=== PATIENT | female | born 1990 | race Caucasian/White ===

== ENCOUNTER 2019-03-22 07:08 | Emergency (ER) | payer BC, OTHER ==
[2019-03-22] MEDS ORDERED: METOCLOPRAMIDE 10 MG/2 ML VIAL IVP ONE (07:33)
[2019-03-22] MEDS ORDERED: KETOROLAC 30 MG/1 ML SDV IVP ONE (07:33)
[2019-03-22] MEDS ORDERED: NS 1,000 ML IV ONE (07:33)
[2019-03-22] MEDS ORDERED: DEXAMETHASONE 10 MG/ML VIAL IVP ONE (07:33)
--- NOTE | 2019-03-22 07:36 | EDPHY ---
H & P Stated Complaint: migraine Time Seen by Provider: 03/22/19 07:29 HPI/ROS: CHIEF COMPLAINT: Migraine headache HISTORY OF PRESENT ILLNESS: The patient presents the emergency department with complaints of a typical migraine headache. The patient reports her headache began at 8:00 a.m. In the evening last night. She is typically able to take NSAIDs to manage her symptoms. She denies any fever, neck stiffness, peripheral numbness or weakness. The patient denies additional acute medical complaints. She currently rates her frontal head headache as an 8/10. REVIEW OF SYSTEMS: A comprehensive 10 point review of systems is otherwise negative aside from elements mentioned in the history of present illness. Source: Patient - Personal History LMP (Females 10-55): 1-7 Days Ago Current Tetanus Diphtheria and Acellular Pertussis (TDAP): Yes - Medical/Surgical History Hx Asthma: No Hx Chronic Respiratory Disease: No Hx Diabetes: No Hx Cardiac Disease: No Hx Renal Disease: No Hx Cirrhosis: No Hx Alcoholism: No Hx HIV/AIDS: No Hx Splenectomy or Spleen Trauma: No Other PMH: migraine - Social History Smoking Status: Never smoked - Physical Exam Exam: General Appearance: Alert, no distress Eyes: Pupils equal and round no pallor or injection ENT, Mouth: Mucous membranes moist Respiratory: There are no retractions, lungs are clear to auscultation Cardiovascular: Regular rate and rhythm Gastrointestinal: Abdomen is soft and nontender, no masses, bowel sounds normal Neurological: A&O, normal motor function, normal sensory exam, normal cranial nerves Skin: Warm and dry, no rashes Musculoskeletal: No nuchal rigidity Constitutional: Initial Vital Signs Temperature (C) 36.8 C 03/22/19 07:13 Heart Rate 79 03/22/19 07:13 Respiratory Rate 17 03/22/19 07:13 Blood Pressure 116/60 03/22/19 07:13 O2 Sat (%) 97 03/22/19 07:13 O2 Delivery Mode Room Air Allergies/Adverse Reactions: No Known Allergies Allergy (Unverified 03/22/19 07:09) Home Medications: Medication Instructions Recorded Nature Thyroid 03/22/19 Ondansetron Odt [Zofran Odt] 4 mg PO Q4PRN PRN #20 tab 03/22/19 Medical Decision Making ED Course/Re-evaluation: The patient presents the ED with a typical migraine headache. She is neurologically intact. There is no evidence of meningitis. The patient was treated with IV Toradol, Benadryl and Reglan. Re-evaluated the patient at 8:15 a.m.: She reports her headache has entirely resolved. She would like to be discharged home. She continues to have a normal neurologic examination. She is discharged home with customary aftercare instructions and return precautions. - Data Points Medications Given: Discontinued Medications Dexamethasone (Decadron Injection) 10 mg IVP EDNOW ONE Stop: 03/22/19 07:34 Last Admin: 03/22/19 07:39 Dose: 10 mg Sodium Chloride (Ns) 1,000 mls @ 0 mls/hr IV ONCE ONE; Wide Open PRN Reason: Protocol Stop: 03/22/19 07:34 Last Admin: 03/22/19 07:38 Dose: 1,000 mls Ketorolac Tromethamine (Toradol) 30 mg IVP EDNOW ONE Stop: 03/22/19 07:34 Last Admin: 03/22/19 07:39 Dose: 30 mg Metoclopramide HCl (Reglan Injection) 10 mg IVP EDNOW ONE Stop: 03/22/19 07:34 Last Admin: 03/22/19 07:39 Dose: 10 mg Departure - Departure Disposition: Home, Routine, Self-Care Clinical Impression: Migraine Condition: Good Instructions: Migraine Headache (ED) Additional Instructions: 1. Take Ibuprofen or Motrin 600 mg by mouth three times a day. 2. Zofran as needed for nausea Prescriptions: Ondansetron Odt [Zofran Odt] 4 mg PO Q4PRN PRN #20 tab PRN Reason: For Nausea
[2019-03-22 08:22] VITALS: BP 112/64
== END 2019-03-22 08:28 | disposition home or self-care (01) ==
DX: G43.909 Migraine, unspecified, not intractable, without status migrainosus (principal); E86.9 Volume depletion, unspecified
CPT/HCPCS: 96374; J1100; J1885; J2765